=== PATIENT | female | born 1960 | race Caucasian/White ===

== ENCOUNTER → 2017-06-01 | Outpatient (CLI) | payer BC | END | disposition home or self-care (01) | LOC: C.PATHSPEC 17:19 | PROVIDERS: ATTEND Dentist Oral and Maxillofacial Surgery | DX: K13.6 Irritative hyperplasia of oral mucosa (principal) ==

== ENCOUNTER → 2017-07-09 | Outpatient (CLI) | payer BC ==
--- NOTE | 2017-07-09 08:57 | DIAGNOSTIC IMAGING REPORT ---
DOUBLE CONTRAST BARIUM ESOPHAGRAM CLINICAL HISTORY: Gastroesophageal reflux disease. COMPARISON STUDY: No priors. TECHNIQUE: A standard air contrast barium esophagram is performed. Multiple spot images of the esophagus are acquired both upright and prone. FINDINGS: The patient swallowed barium and the barium pill without difficulty. The mucosal pattern is normal. There is no evidence of intrinsic or extrinsic mass lesion. No aspiration was seen. Mild dysmotility is noted in the distal esophagus. The gastroesophageal junction distended normally. No gastroesophageal reflux could be elicited by having the patient perform the Valsalva maneuver. There is a tiny sliding-type hiatal hernia. Fluoroscopy time: 1.3 minutes. Fluoroscopic images: 25 IMPRESSION: 1. Mild esophageal dysmotility. 2. Small sliding hiatal hernia. Electronically signed by: Pj Acuna M.D. 07/09/2017 8:56 AM Dictated Date/Time: 07/09/2017 8:54 AM
== END | disposition home or self-care (01) ==
LOC: C.RAD 08:04
PROVIDERS: ATTEND Family Medicine
DX: K21.9 Gastro-esophageal reflux disease without esophagitis (principal); K44.9 Diaphragmatic hernia without obstruction or gangrene